=== PATIENT | female | born 1970 | race Caucasian/White ===

== ENCOUNTER 2019-01-09 17:41 | Emergency (ER) | payer BC ==
[~2019-01-09] VITALS: Ht 162.6 cm; Wt 59.0 kg
[~2019-01-09 17:41] MED LIST: Cyclobenzaprine5 MG PO; HYDACE5 PO; IBUP800; RXHYDACE PO; SUMA25 PO
[2019-01-09 18:22] LABS: BASOPHILS ABSOLUTE AUTO 0.03 K/mm3 (0.00-0.23); BASOPHILS PERCENT AUTO 0 % (0-2); EOSINOPHILS ABSOLUTE AUTO 0.05 K/mm3 (0.00-0.68); EOSINOPHILS PERCENT AUTO 1 % (0-6); Hematocrit 42.6 % (33.0-51.0); IMMATURE GRAN ABSOLUTE AUTO 0.02 K/mm3 (0.00-0.10); IMMATURE GRAN PERCENT AUTO 0 % (0-1); LYMPHOCYTES ABSOLUTE AUTO 3.03 K/mm3 (0.84-5.20); LYMPHOCYTES PERCENT AUTO 39 % (21-46); MONOCYTES ABSOLUTE AUTO 0.46 K/mm3 (0.16-1.47); MONOCYTES PERCENT AUTO 6 % (4-13); Mean Corpuscular HGB Conc 32.9 g/dL (31.5-36.5); Mean Corpuscular Volume 97 fL (80-100); Mean Platelet Volume 10.1 fL (9.1-12.4); NEUTROPHILS ABSOLUTE AUTO 4.12 K/mm3 (1.96-9.15); NEUTROPHILS PERCENT AUTO 53 % (41-73); Platelet Count 273 K/mm3 (150-400); RDW Coefficient Variation 11.9 % (11.7-14.2); RDW Standard Deviation 43.1 fL (35.1-46.3); Red Blood Cell Count 4.38 M/mm3 (3.80-5.20); White Blood Cell Count 7.71 K/mm3 (4.00-11.30)
[2019-01-09 18:51] LABS: Alanine Aminotransfer (ALT/SGP 20 U/L (12-78); Albumin, Blood 3.8 g/dL (3.4-5.0); Albumin/Globulin Ratio 1.1 (0.8-1.8); Alk Phos 73 U/L (50-136); Anion Gap 7 mmol/L (6-16); Aspartate Aminotrans (AST/SGOT 14 U/L (12-37); Bilirubin, Total 0.7 mg/dL (0.1-1.0); Blood Urea Nitrogen 12 mg/dL (8-24); Bun/Creatinine Ratio 17.7 (12.0-20.0); CO2, Blood 23 mmol/L (21-32); Calcium, Blood 8.5 mg/dL (8.5-10.1); Chloride, Blood 110 mmol/L (98-108); Creatinine, Blood 0.68 mg/dL (0.40-1.00); Globulin, Blood 3.4 g/dL (2.2-4.0); Glomerular Filtration Rate >60 (60-); Glucose, Blood 96 mg/dL (70-99); Potassium, Blood 3.5 mmol/L (3.5-5.5); Sodium, Blood 140 mmol/L (136-145); Total Protein, Blood 7.2 g/dL (6.4-8.2)
[2019-01-09 19:00] LABS: Source, Urine Clean Catch
[2019-01-09 19:03] LABS: Appearance, Urine Clear (Clear); Bilirubin, Urine Neg (Neg); Blood, Urine Neg (Neg); Color, Urine Yellow (P-Yellow); Glucose Qualitative, Urine Neg (Neg); Ketones, Urine 3+ (Neg); Leukocyte Esterase, Urine Neg (Neg); Nitrite, Urine Neg (Neg); Protein, Urine Neg (Neg); Specific Gravity, Urine 1.025 (1.003-1.022); Urobilinogen, Urine NORM (Normal)
[2019-01-09] MEDS ORDERED: Protonix40 MG PO (22:27)
== END 2019-01-09 22:45 | disposition home or self-care (01) ==
LOC: ER 17:41
PROVIDERS: Physician Assistant
DX: K29.70 Gastritis, unspecified, without bleeding (principal); Z88.5 Allergy status to narcotic agent; Z88.8 Allergy status to other drugs, medicaments and biological substances; Z79.899 Other long term (current) drug therapy; G43.909 Migraine, unspecified, not intractable, without status migrainosus
CPT/HCPCS: 36415; 74177; 80053; 81003; 83690; 84484; 85025; 93005; 93010; 96374-59; 96376-59; 99284-25; J3010; Q9967

== ENCOUNTER 2019-01-28 13:46 | Day surgery (SDC) | payer BC ==
[~2019-01-28] VITALS: Ht 162.6 cm; Wt 60.1 kg
[~2019-01-28 13:46] MED LIST changes: +Protonix40 MG PO
[2019-01-28] MEDS ORDERED: PROG100 (14:10)
[2019-01-28] MEDS ORDERED: Striant30 MG (14:10)
== END 2019-01-28 15:05 | disposition home or self-care (01) ==
LOC: ORSCSDS 13:46
PROVIDERS: Internal Medicine Gastroenterology
PROC: 0DB58ZX Excision of Esophagus, Via Natural or Artificial Opening Endoscopic, Diagnostic (ICD-10-PCS; principal; 2019-01-28 15:00)
PROC: 0DB68ZX Excision of Stomach, Via Natural or Artificial Opening Endoscopic, Diagnostic (ICD-10-PCS; principal; 2019-01-28 15:00)
DX: R10.13 Epigastric pain (principal); K29.70 Gastritis, unspecified, without bleeding; B96.81 Helicobacter pylori [H. pylori] as the cause of diseases classified elsewhere; R11.2 Nausea with vomiting, unspecified; F32.9 Major depressive disorder, single episode, unspecified; J45.909 Unspecified asthma, uncomplicated; Z79.899 Other long term (current) drug therapy
CPT/HCPCS: 88305; 88342; J2704; J7120

== ENCOUNTER 2021-05-01 13:44 | Emergency (ER) | payer BC ==
[~2021-05-01] VITALS: Ht 162.6 cm; Wt 59.0 kg
[~2021-05-01 13:44] MED LIST changes: +PROG100; +Striant30 MG
[2021-05-01] MEDS ORDERED: NUVARING VAGIN1 EAC1 VG (14:50)
[2021-05-01] MEDS ORDERED: CYCL10 (14:50)
== END 2021-05-01 15:35 | disposition home or self-care (01) ==
LOC: ER 13:44
DX: M79.604 Pain in right leg (principal)
CPT/HCPCS: 93971; 99283-25

== ENCOUNTER 2021-07-28 16:39 | Emergency (ER) | payer BC ==
[~2021-07-28] VITALS: Ht 162.6 cm; Wt 59.0 kg
[~2021-07-28 16:39] MED LIST changes: +CYCL10; +NUVARING VAGIN1 EAC1 VG
[2021-07-29] MEDS ORDERED: EPIPEN0.3 MG/0.3 IM (15:03)
[2021-07-29] MEDS ORDERED: METPRE4DP PO (15:04)
== END 2021-07-28 17:48 | disposition left against medical advice (07) ==
LOC: ER 16:39
DX: R22.1 Localized swelling, mass and lump, neck (principal); Z53.21 Procedure and treatment not carried out due to patient leaving prior to being seen by health care provider
CPT/HCPCS: 99282; A9270; J1100

== ENCOUNTER 2021-07-29 14:46 | Emergency (ER) | payer BC ==
[~2021-07-29] VITALS: Ht 170.2 cm; Wt 68.0 kg
[2021-07-29] MEDS ORDERED: EPIPEN0.3 MG/0.3 IM (15:03)
[2021-07-29] MEDS ORDERED: METPRE4DP PO (15:04)
== END 2021-07-29 15:06 | disposition home or self-care (01) ==
LOC: ER 14:46
DX: T63.441A Toxic effect of venom of bees, accidental (unintentional), initial encounter (principal); Z88.5 Allergy status to narcotic agent
CPT/HCPCS: 99281

== ENCOUNTER 2021-08-16 07:17 | Day surgery (SDC) | payer BC ==
[~2021-08-16] VITALS: Ht 162.6 cm; Wt 62.2 kg
[~2021-08-16 07:17] MED LIST changes: +ALBU2.5V5 INH; +Depo-Prove150 MG/11; +EPIPEN0.3 MG/0.3 IM; +METPRE4DP PO; -SUMA25 PO; +SUMA5NI; +Voltaren100 GM TOP
[2021-08-16] MEDS ORDERED: ALBU90OI INH (07:49)
[2021-08-16] MEDS ORDERED: NUVARING VAGIN1 EAC1 VAG (07:50)
--- NOTE | 2021-08-16 09:24 | NUR ---
08/16/21 0924 Henrry Sy A DEFICIT OF [address] DELGADILLO AWARE.
== END 2021-08-16 10:28 | disposition home or self-care (01) ==
LOC: ORSCSDS 07:17
PROVIDERS: Obstetrics & Gynecology
PROC: 0U5B8ZZ Destruction of Endometrium, Via Natural or Artificial Opening Endoscopic (ICD-10-PCS; principal; 2021-08-16 08:30)
DX: N92.1 Excessive and frequent menstruation with irregular cycle (principal); N80.0 Endometriosis of uterus; J45.909 Unspecified asthma, uncomplicated; F41.9 Anxiety disorder, unspecified; Z79.899 Other long term (current) drug therapy
CPT/HCPCS: A9270; J1100; J1885; J2250; J2405; J2704; J3010; J7120

== ENCOUNTER → 2024-09-22 | Outpatient (CLI) | payer OTHER ==
[~2024-09-22] MED LIST changes: +ALBU90OI INH; +NUVARING VAGIN1 EAC1 VAG
== END ==
LOC: LAB SHORT 14:24 → LAB 14:24
DX: J02.9 Acute pharyngitis, unspecified (principal)
CPT/HCPCS: 87081